=== PATIENT | male | born 1960 | race Caucasian/White ===

== ENCOUNTER 2025-06-08 07:30 | Inpatient (IN) | payer OTHER ==
[~2025-06-08] VITALS: Ht 182.9 cm; Wt 86.2 kg
[2025-06-08] MEDS ORDERED: CLONAZEPAM1 MG PO (08:10)
[2025-06-08] MEDS ORDERED: ROSUVASTATIN CA40 MG PO (08:10)
[2025-06-08 08:33] VITALS: BP 150/89
[2025-06-08 09:14] LABS: BASO % 0.6 % (0.1-1.2); EOS # 0.11 (0.04-0.54); EOS % 1.7 % (0.7-7.0); LYMPH # 1.63 (1.18-3.74); LYMPH % 25.6 % (19.3-53.1); MEAN PLATELET VOLUME 9.80 fl (9.4-12.4); MONO # 0.57 (0.24-0.82); MONO % 9.0 % (4.7-12.5); NEUT # 4.00 (1.56-6.13); NEUT % 62.9 % (34.0-71.1); RED CELL DISTRIBUTION WIDTH 12.6 % (11.6-14.4)
[2025-06-08 09:19] LABS: URINE APPEARANCE Clear; URINE BILIRRUBIN Negative (NEGATIVE); URINE BLOOD Negative; URINE COLOR Yellow; URINE GLUCOSE Negative (NEGATIVE); URINE KETONE Negative (NEGATIVE); URINE LEUKOCYTE Negative; URINE NITRATE Negative; URINE PROTEIN Negative (NEGATIVE); URINE UROBILINOGEN 0.2 E.U./dl
[2025-06-08 09:23] LABS: URINE BACTERIA 8.3 uL (0.0-1933); URINE EPITHELIAL CELLS 3.8 uL (0.0-38.8); URINE RBC 2.1 uL (0.0-20.8); URINE WBC 7.0 uL (0.0-23.2)
[2025-06-08 09:44] LABS: URINE CAST 0.58 uL (0.0-1.40)
[2025-06-08 09:51] LABS: INR 1.06
[2025-06-08 09:57] LABS: ALT/SGPT 45.0 U/L (12-78); AST/SGOT 25.0 U/L (15-37); BILIRUBIN TOTAL 0.84 mg/dL (0.3-1.2); BUN CREA RATIO 14.0 (7.0-25.0); CREATININE SERUM 0.91 mg/dL (0.70-1.30); GFR 83.36; GLOBULINA 3.1 G/DL (2.4-3.5); GLUCOSE FASTING 89.0 mg/dL (65-100); OSMOLALITY SERUM 285.0 MOSM/KG (275-295)
[2025-06-14] MEDS ORDERED: CEFAZOLIN SODIUM 1,000 MG VIAL ONE ×2 (06:39→12:29)
[2025-06-14] MEDS ORDERED: KETOROLAC TROMETHAMINE 60 MG VIAL IM ONE ×2 (07:00→08:00)
[2025-06-14] MEDS ORDERED: BUPIVACAINE HCL/MPF 0.5% 30ML VIAL ONE (07:00)
[2025-06-14] MEDS ORDERED: TRANEXAMIC ACID 100MG/1ML (1000MG) AMPUL ONE (07:01)
[2025-06-14] MEDS ORDERED: VANCOMYCIN HCL 1,000 MG VIAL ONE (07:01)
[2025-06-14] MEDS ORDERED: LIDOCAINE HCL 1%/EPINEPHRINE 20ML VIAL IJ ONE ×2 (07:01→08:00)
[2025-06-14] MEDS ORDERED: ISOPROPYL ALCOHOL 30 ML OUNCE TOP ONE ×2 (07:01→08:00)
[2025-06-14] MEDS ORDERED: CEFAZOLIN SODIUM 1,000 MG VIAL IV ONE (07:45)
[2025-06-14] MEDS ORDERED: BUPIVACAINE HCL 30 ML VIAL IJ ONE (08:00)
[2025-06-14] MEDS ORDERED: TRANEXAMIC ACID 100MG/1ML (1000MG) AMPUL IV ONE ×2 (08:00)
[2025-06-14] MEDS ORDERED: MORPHINE SULFATE 4 MG/ML CARTRIDGE IV ONE (08:00)
[2025-06-14] MEDS ORDERED: VANCOMYCIN HCL 1,000 MG VIAL IR ONE (08:00)
[2025-06-14] MEDS ORDERED: ONDANSETRON HCL 2 MG/ML VIAL IV PRN (09:45)
[2025-06-14] MEDS ORDERED: CEFAZOLIN SODIUM 1,000 MG VIAL IV SCH (12:00)
[2025-06-14] MEDS ORDERED: OxyCODONE HCL 5 MG TABLET (ROXICODONE) PO SCH (12:00)
[2025-06-14] MEDS ORDERED: MORPHINE SULFATE 4 MG/ML CARTRIDGE IV SCH (12:00)
[2025-06-14 16:00] VITALS: BP 130/81; O2SAT 98
[2025-06-14] MEDS ORDERED: ROSUVASTATIN CALCIUM 20 MG TABLET PO SCH (17:00)
[2025-06-14] MEDS ORDERED: GABAPENTIN 100 MG CAPSULE PO SCH (21:00)
[2025-06-14] MEDS ORDERED: ORPHENADRINE CITRATE 100 MG TABLET PO SCH (21:00)
[2025-06-15 00:24] VITALS: BP 141/83; O2SAT 97
[2025-06-15 06:53] LABS: BASO % 0.4 % (0.1-1.2); EOS # 0.07 (0.04-0.54); EOS % 0.7 % (0.7-7.0); LYMPH # 1.20 (1.18-3.74); LYMPH % 12.4 % (19.3-53.1); MEAN PLATELET VOLUME 10.40 fl (9.4-12.4); MONO # 1.32 (0.24-0.82); NEUT # 6.97 (1.56-6.13); NEUT % 72.4 % (34.0-71.1); RED CELL DISTRIBUTION WIDTH 12.6 % (11.6-14.4)
[2025-06-15 07:06] LABS: MONO % 13.7 % (4.7-12.5)
[2025-06-15 07:25] VITALS: BP 138/77; O2SAT 95
[2025-06-15] MEDS ORDERED: RIVAROXABAN 10 MG TAB PO SCH (09:00)
[2025-06-15 13:08] LABS: COVID-19 AG NEGATIVE (NEGATIVE)
[2025-06-15 16:53] VITALS: BP 164/71; O2SAT 95
[2025-06-15] MEDS ORDERED: Cyanocobalamin/Mecobalamin 1 TAB.SL SL SCH (17:00)
[2025-06-15] MEDS ORDERED: IRON FUM,PS/FOLIC ACID/VITC/B3 1 CAP CAPSULE PO SCH (17:00)
[2025-06-16 00:50] VITALS: BP 146/73; O2SAT 96
[2025-06-16 06:20] LABS: BASO % 0.4 % (0.1-1.2); EOS # 0.13 (0.04-0.54); EOS % 1.3 % (0.7-7.0); LYMPH # 1.26 (1.18-3.74); LYMPH % 12.2 % (19.3-53.1); MEAN PLATELET VOLUME 9.90 fl (9.4-12.4); MONO # 1.13 (0.24-0.82); MONO % 10.9 % (4.7-12.5); NEUT # 7.78 (1.56-6.13); NEUT % 74.9 % (34.0-71.1); RED CELL DISTRIBUTION WIDTH 12.6 % (11.6-14.4)
[2025-06-16 08:00] VITALS: BP 158/93; O2SAT 95
[2025-06-16] MEDS ORDERED: GABAPENTIN100 MG PO (12:01)
[2025-06-16] MEDS ORDERED: XARELTO10 MG PO (12:01)
[2025-06-16] MEDS ORDERED: NORFLEX100MG PO (12:01)
[2025-06-16] MEDS ORDERED: PERCOCET 5-3251 EACH PO (12:02)
[2025-06-16] MEDS ORDERED: MORPHINE SULFATE 4 MG/ML CARTRIDGE IV PRN (12:15)
[2025-06-16] MEDS ORDERED: OxyCODONE HCL 5 MG TABLET (ROXICODONE) PO PRN (12:15)
== END 2025-06-16 16:50 | disposition home or self-care (01) | DRG 470 ==
LOC: O/R 06-14 06:00 → SURH 06-14 07:30 → SURG 06-14 11:46
PROVIDERS: ADMIT Orthopaedic Surgery; ATTEND Orthopaedic Surgery
PROC: 0QUD0JZ Supplement Right Patella with Synthetic Substitute, Open Approach (ICD-10-PCS; 2025-06-14)
PROC: 0SRC0JZ Replacement of Right Knee Joint with Synthetic Substitute, Open Approach (ICD-10-PCS; principal; 2025-06-14 10:30)
DX: M17.11 Unilateral primary osteoarthritis, right knee (principal); D62 Acute posthemorrhagic anemia; Z96.651 Presence of right artificial knee joint; K52.9 Noninfective gastroenteritis and colitis, unspecified; E86.0 Dehydration; M85.661 Other cyst of bone, right lower leg; E78.2 Mixed hyperlipidemia